=== PATIENT | female | born 1965 | race Caucasian/White ===

== ENCOUNTER 2017-03-23 15:50 | Emergency (ER) | payer SELFPAY ==
[~2017-03-23] VITALS: Ht 165.1 cm; Wt 65.0 kg
[2017-03-23 15:52] VITALS: BP 235/119; PULSE 91; RESP 16; TEMP 98.4; O2SAT 98
--- NOTE | 2017-03-23 15:55 | PD ---
Physical Exam Time Seen by Provider: 15:53 Narrative 52-year-old female presents with concern of high blood pressure. Was getting ready to go in for cataract surgery and was sent to the ER secondary to elevated blood pressure. Denies chest pain, shortness of breath, headache, change in vision, vomiting. Patient seen in triage. Vital signs reviewed. Patient taken to medical bed. Data Data Last Documented VS Vital Signs Date Time Temp Pulse Resp B/P (MAP) Pulse Ox O2 Delivery O2 Flow Rate FiO2 03/23/17 15:52 98.4 91 16 235/119 (157) 98 MDM Supervised Visit with MYKEL: Joyce Martini Mar 23, 2017 15:55
[2017-03-23] MEDS ORDERED: AMLO10TA2 PO (16:39)
--- NOTE | 2017-03-23 16:39 | PD ---
HPI Chief Complaint: Hypertension Time Seen by Provider: 16:00 Travel History International Travel<30 days: No Contact w/Intl Traveler<30days: No Traveled to known affect area: No History of Present Illness HPI 52 old woman presents emergency department complaining of elevated blood pressure. She was going her cataract surgery done today and then they told her blood pressure is very elevated and she should come to the emergency room. No chest pain. No trouble breathing. No other complaints. History Past Medical History Narrative Medical HTN Influenza Vaccination: No Menopausal: Yes Social History Alcohol Use: Yes (2-4 liquor drinks per night) Tobacco Use: Yes (1 ppd) Allergies-Medications (Allergen,Severity, Reaction): Coded Allergies: No Known Drug Allergies (Verified Allergy, Unknown, 03/23/17) Reported Meds & Prescriptions Reported Meds & Active Scripts Active No Active Prescriptions or Reported Medications Review of Systems Except as stated in HPI: all other systems reviewed are Neg Physical Exam Narrative GENERAL: Well-appearing 52 year-old woman, no acute distress. SKIN: Warm and dry. CARDIOVASCULAR: Warm and well perfused. RESPIRATORY: Normal rate and effort. MUSCULOSKELETAL: No deformities. NEUROLOGICAL: Awake and alert. No gross deficits. Data Data Last Documented VS Vital Signs Date Time Temp Pulse Resp B/P (MAP) Pulse Ox O2 Delivery O2 Flow Rate FiO2 03/23/17 15:52 98.4 91 16 235/119 (157) 98 Orders Orders Amlodipine (Norvasc) (03/23/17 16:30) [facility] Medical Decision Making Medical Screen Exam Complete: Yes Emergency Medical Condition: Yes Interpretation(s) My review of EKG: Normal sinus rhythm at a rate of 91, normal axis normal intervals, nonspecific lateral ST changes, no definite evidence of acute ischemia. Differential Diagnosis Hypertension Tobacco use ACS Other Narrative Course Medical decision making Before year-old woman, a somatic elevated blood pressure. EKG shows some nonspecific lateral ST depressions. In the absence of chest pain, recommend no further evaluation. She is asymptomatic and referred here simply because of her elevated blood pressure numbers at her appointment to get her cataract surgery. Recommend initiating antihypertensives, outpatient follow-up with primary care physician for further evaluation and routine testing and monitoring. Diagnosis Primary Impression: Hypertension Additional Instructions: Take amlodipine as prescribed. Follow-up with the [place] [facility] as discussed. Return to the emergency department for any new or worsening symptoms. Med/Other Pt SpecificInfo: Prescription(s) given Scripts Amlodipine (Amlodipine) 10 Mg Tab 10 MG PO DAILY for Blood Pressure Management, #30 TAB 0 Refills Prov: Danish Fenton MD 03/23/17 Disposition: 01 DISCHARGE HOME Condition: Stable Danish Fenton MD Mar 23, 2017 16:39
[2017-03-23 17:14] VITALS: BP 184/101
--- NOTE | 2017-03-24 15:14 | EKG ---
Date Performed: 03/23/2017 Time Performed: 16:18:57 PTAGE: 52 years EKG: Sinus rhythm POSSIBLE RIGHT VENTRICULAR CONDUCTION DELAY MODERATE ST DEPRESSION ABNORMAL ECG NO PREVIOUS TRACING DOCTOR: Sarah Funez Interpretating Date/Time 03/24/2017 15:13:25
== END 2017-03-23 18:09 | disposition home or self-care (01) ==
LOC: NEPD 15:50
DX: I10 Essential (primary) hypertension (principal)
CPT/HCPCS: 93005; 99283